=== PATIENT | female | born 2000 | race Caucasian/White ===

== ENCOUNTER 2025-08-25 21:44 | Emergency (ER) | payer OTHER, MEDICAID ==
[~2025-08-25] VITALS: Ht 157.5 cm; Wt 65.0 kg
[2025-08-25 22:39] VITALS: O2SAT 99
[2025-08-25] MEDS: ACETAMINOPHEN 325MG TABLET PO ONE (23:47)
[2025-08-25] MEDS: LIDOCAINE 5% PATCH TOP SCH (23:47)
[2025-08-26 00:26] VITALS: BP 119/69; PULSE 60; RESP 12; TEMP 36.8; O2SAT 100
== END 2025-08-26 00:27 | disposition home or self-care (01) ==
LOC: ER 21:44
DX: M25.511 Pain in right shoulder (principal)
CPT/HCPCS: 73030; 99283